=== PATIENT | female | born 1935 | race Caucasian/White ===

== ENCOUNTER 2019-07-03 16:48 | Outpatient (CLI) | payer MEDICARE, MEDICAID, SELFPAY ==
--- NOTE | 2019-07-03 | MRR_ITS ---
PROCEDURE INFORMATION: Exam: MR Head Without Contrast Exam date and time: 07/03/2019 5:14 PM Age: 83 years old Clinical indication: Other: Hearing loss; Additional info: Mixed hearing loss TECHNIQUE: Imaging protocol: MR of the head without contrast. COMPARISON: MRI IAC'S w/wo* [id number] 02/15/2015 1:12 PM FINDINGS: Brain: Moderate cerebral atrophy and ischemic leukoencephalopathy. Ventricles: Normal. No ventriculomegaly. Bones/joints: Unremarkable. Soft tissues: Unremarkable. Sinuses: Normal as visualized. No acute sinusitis. Mastoid air cells: Continued opacities in the left middle ear and left mastoid most consistent with stable chronic otitis media and mastoiditis. Orbits: Unremarkable. Vertebral arteries: Dominant right vertebral artery with patent left vertebral artery. MR/MR head wo con* [id number] IMPRESSION: 1. Moderate cerebral atrophy and ischemic leukoencephalopathy. 2. Continued opacities in the left middle ear and left mastoid most consistent with stable chronic otitis media and mastoiditis. 3. No acute intracranial findings.
== END 2019-07-03 16:49 | disposition home or self-care (01) ==
LOC: RADSHAW 16:48
PROVIDERS: Family Provider Family Medicine; PCP Family Medicine; Visit Provider Otolaryngology Otology & Neurotology
DX: H90.6 Mixed conductive and sensorineural hearing loss, bilateral (principal); G31.9 Degenerative disease of nervous system, unspecified
CPT/HCPCS: 70551

== ENCOUNTER → 2019-09-29 12:25 | Outpatient (BNVA) | payer MEDICARE, MEDICAID, SELFPAY | PROVIDERS: Family Provider Family Medicine; PCP Family Medicine; Visit Provider Urology | DX: N39.0 Urinary tract infection, site not specified (principal); R33.9 Retention of urine, unspecified; B37.3 Candidiasis of vulva and vagina | CPT/HCPCS: 80053; 81001 ==

== ENCOUNTER 2020-01-26 13:21 | Outpatient (CLI) | payer MEDICARE, MEDICAID, SELFPAY ==
--- NOTE | 2020-01-26 13:28 | CT_ITS ---
WS: [id number] CT CERVICAL SPINE TECHNIQUE: Noncontrast CT of the cervical spine with coronal and sagittal reformatted images. CLINICAL INFORMATION: CERVICAL RADICULOPATHY COMPARISON: None. DLP: 1861.[address] scans at [facility] use at least one of these dose optimization techniques: automat ed exposure control; mA and/or kV adjustment per patient size (includes targeted exams where dose is matched to clinical indication); or iterative reconstruction. FINDINGS: Straightening of the normal cervical lordosis. Mild cervical curve convex left. Mild spondylitic patrick ges. Normal C1-2 articulation. Slight anterolisthesis C3 on C4 and C4 on C5. Disc osteophyte complexe s worse at C5-C6 and C6-C7. C2-C3: Normal. C3-C4: Disc osteophyte ridging. Mild bilateral foraminal narrowing. Moderate right facet arthropathy. Mild central canal stenosis. C4-C5: Mild disc osteophyte complex with a tiny central protrusion. Mild to moderate facet arthropath y. Mild bilateral foraminal narrowing. C5-C6: Disc osteophytic complex with mild central canal stenosis and slight contact of the left ventr al cervical cord. Moderate to severe left foraminal narrowing. Mild right bony foraminal narrowing. M ild facet arthropathy. C6-C7: Disc osteophyte complex with endplate ridging. Severe left and no significant right foraminal narrowing. Mild central canal stenosis. Mild facet arthropathy. C7-T1: Tiny shallow central protrusion. Spinal canal and foramen are patent. Visualized posterior nasopharynx: Normal. Prevertebral soft tissues: Normal. Carotid bulb calcification. Chronic appearing opacification left mastoid air cells. CT/CT cervical spin wo con* [id number] IMPRESSION: 1. Mild spondylitic changes with straightening of the normal cervical lordosis . Slight anterolisthesis C3 on C4 and C4 on C5. 2. Mild central canal stenosis C5-C6 and C6-C7. Left eccentric disc osteophyte complex C5-C6 with slight contact of the ventral cervical cord. 3. Moderate to severe left bony foraminal narrowing at left C5-C6 and left C6- C7. 4. Moderate facet arthropathy C3-C4. 5. Chronic appearing opacification left mastoid air cells.
== END 2020-01-26 13:22 | disposition home or self-care (01) ==
LOC: RADWPI 13:25
PROVIDERS: Family Provider Family Medicine; PCP Family Medicine; Visit Provider Family Medicine
DX: M54.12 Radiculopathy, cervical region (principal); M48.02 Spinal stenosis, cervical region; M47.812 Spondylosis without myelopathy or radiculopathy, cervical region
CPT/HCPCS: 72125

== ENCOUNTER 2020-03-04 10:14 | Outpatient (CLI) | payer MEDICARE, MEDICAID, SELFPAY ==
[2020-03-04 10:54] LABS: C Reactive Protein 6.4 mg/L (0.0-4.9); Troponin T (5th) Once 16 ng/L (0-10)
[2020-03-04 13:45] LABS: Basophils # 0.1 10^3/uL (0.0-0.1); Basophils % 0.7 %; Eosinophils # 0.4 10^3/uL (0.0-0.8); Eosinophils % 4.6 %; Hematocrit 42.6 % (37.0-47.0); Hemoglobin 13.4 g/dL (11.5-15.3); Lymphocytes # 2.3 10^3/uL (0.8-4.8); Mean Corpuscular HGB Conc 31.5 g/dL (30.0-36.0); Mean Corpuscular Hemoglobin 28.8 pg (28.0-34.0); Mean Corpuscular Volume 91.6 fL (81-99); Mean Platelet Volume 11.7 fL (7.4-10.4); Monocytes # 0.6 10^3/uL (0.2-0.9); Monocytes % 7.3 %; Neutrophils # 5.08 10^3/uL (1.8-7.7); Neutrophils % 60.2 %; Nucleated Red Blood Cells % 0 %; Platelet Count 243 10^3/cmm (130-400); Red Blood Count 4.65 10^6/uL (4.1-5.3); Red Cell Distribution Width 13.7 % (12.1-15.1); White Blood Count 8.5 10^3/uL (4.0-10.0)
[2020-03-04 13:52] LABS: Alanine Aminotransferase 21 U/L (0-33); Albumin Level 4.5 g/dL (3.5-5.2); Alkaline Phosphatase 74 IU/L (35-105); Aspartate Amino Transferase 28 U/L (0-32); Blood Urea Nitrogen 18 mg/dL (8-23); Calcium 10.1 mg/dL (8.5-10.5); Carbon Dioxide 26 mmol/L (22-29); Chloride 98 mmol/L (98-107); Globulin 3.2 g/dL (1.3-4.6); Glucose 217 mg/dL (65-115); Osmolality Calculated 294 mOsm/kg (285-295); Sodium 138 mmol/L (136-145); Total Bilirubin 0.4 mg/dL (0.15-1.2); Total Protein 7.7 g/dL (6.6-8.7)
== END 2020-03-04 10:15 | disposition home or self-care (01) ==
LOC: LAB 10:16
PROVIDERS: PCP Family Medicine; Visit Provider Family Medicine
DX: I10 Essential (primary) hypertension (principal); R10.31 Right lower quadrant pain
CPT/HCPCS: 80053; 84484; 85025; 86140

== ENCOUNTER 2020-03-04 10:28 | Emergency (ER) | payer MEDICARE, MEDICAID, SELFPAY ==
[2020-03-04 10:30] VITALS: BP 193/104; PULSE 70; RESP 18; TEMP 36.4; O2SAT 96; BMI 29.9
--- NOTE | 2020-03-04 10:41 | CT_ITS ---
WS: [id number] CT abdomen pelvis w con* [id number] REASON FOR EXAM: abdominal pain IV CONTRAST ADMINISTERED: 95 mL of Visipaque TOTAL EXAM DLP: 1063.[address] scans at [facility] use at least one of these dose optimization techniques: automat ed exposure control; mA and/or kV adjustment per patient size (includes targeted exams where dose is matched to clinical indication); or iterative reconstruction. FINDINGS: ABDOMEN: Infiltrative change in the anterior, lateral left lower lung. This appears to been present on a previ ous chest x-ray of 03/02/2019. The liver is relatively homogeneous. No focal lesions are identified. The gallbladder and pancreas are unremarkable. Adrenals and kidneys are within normal limits. No abdominal mass or adenopathy. No focal fluid collection or free fluid noted. Small periumbilical hernia containing fat. Normal appendix identified distended with air. Extensive calcified atheromatous change involving the abdominal aorta and its major branches. Definit e high-grade stenoses not identified. Moderate changes of degenerative spondylosis in the lumbar spine. PELVIS: Moderate distention of the urinary bladder with no intraluminal mass or wall thickening. No mass or adenopathy. Uterus present. No free fluid or focal fluid collection. Moderate degenerative arthropathy in both hip joints. Diffuse calcified atheromatous change of the iliac arteries. CT/CT abdomen pelvis w con* [id number] IMPRESSION: No acute abdominal abnormality is identified.
[2020-03-04 11:16] LABS: Basophils # 0.1 10^3/uL (0.0-0.1); Basophils % 0.6 %; Eosinophils # 0.3 10^3/uL (0.0-0.8); Eosinophils % 3.8 %; Hematocrit 41.7 % (37.0-47.0); Hemoglobin 13.2 g/dL (11.5-15.3); Lymphocytes # 2.1 10^3/uL (0.8-4.8); Lymphocytes % 24.4 %; Mean Corpuscular HGB Conc 31.7 g/dL (30.0-36.0); Mean Corpuscular Hemoglobin 29.3 pg (28.0-34.0); Mean Corpuscular Volume 92.5 fL (81-99); Mean Platelet Volume 11.4 fL (7.4-10.4); Monocytes # 0.7 10^3/uL (0.2-0.9); Monocytes % 7.7 %; Neutrophils % 63.2 %; Nucleated Red Blood Cells % 0 %; Platelet Count 246 10^3/cmm (130-400); Red Blood Count 4.51 10^6/uL (4.1-5.3); Red Cell Distribution Width 13.7 % (12.1-15.1); White Blood Count 8.7 10^3/uL (4.0-10.0)
[2020-03-04 11:33] LABS: Alanine Aminotransferase 20 U/L (0-33); Albumin Level 4.4 g/dL (3.5-5.2); Alkaline Phosphatase 72 IU/L (35-105); Aspartate Amino Transferase 25 U/L (0-32); Blood Urea Nitrogen 18 mg/dL (8-23); Calcium 10.2 mg/dL (8.5-10.5); Carbon Dioxide 27 mmol/L (22-29); Chloride 99 mmol/L (98-107); Globulin 3.3 g/dL (1.3-4.6); Glucose 201 mg/dL (65-115); Lipase 22 U/L (13-60); Osmolality Calculated 296 mOsm/kg (285-295); Sodium 139 mmol/L (136-145); Total Bilirubin 0.4 mg/dL (0.15-1.2); Total Protein 7.7 g/dL (6.6-8.7)
--- NOTE | 2020-03-04 11:42 | ECG_ITS ---
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: : 1935 Requested By: Joan Bond Order Number: [id number] Reading MD: SARWAT MONIQUE Measurements Intervals [place] Rate: 66 P: 33 MD: 189 QRS: -21 QRSD: 94 T: 57 QT: 407 QTc: 429 Interpretive Statements SINUS RHYTHM VOLTAGE CRITERIA FOR LVH [MEETS CRITERIA IN ONE OF: R(aVL), S(V1), R(V5), R(V5/V6)+S(V1)] INFERIOR MYOCARDIAL INFARCTION [40+ ms Q WAVE AND/OR ST/T ABNORMALITY IN II/aVF], OF INDETERMINATE AGE POSSIBLE ANTEROSEPTAL MYOCARDIAL INFARCTION [30 ms Q WAVE IN V1-V4], OF INDETERMINATE AGE Compared to ECG 12/25/2018 14:24:10 No significant changes Electronically Signed On 03-04-2020 19:28:38 FINANCIAL PROJECT MANAGER by SARWAT MONIQUE [id number]
[2020-03-04 11:49] LABS: Lactic Sepsis W/Reflex 1.8 mmol/L (0.5-2.2)
--- NOTE | 2020-03-04 11:49 | W.ED.CHESTPA ---
HPI - Chest Pain General: Chief Complaint: Abdominal Pain Stated Complaint: ABDOMINAL PAIN/ HYPERTENSIVE Time Seen by Provider: 03/04/20 10:34 History of Present Illness: HPI narrative: This patient is an 84-year-old female who was sent over from Dr. Mukherjee office. She saw him today for abdominal pain it has been going on for a few days. She feels it in the right lower quadrant. She said it is kind of a dull pain that comes and goes. Last night it was severe enough that she took something for it. She has never had any abdominal surgeries. She is a diabetic and is poorly controlled. She has some chronic nausea related to that. She is not been vomiting. She has been having normal bowel movements. She denies urinary symptoms. She is on antibiotics chronically to prevent infections she tells me. MD complaint: other Associated symptoms: Reports abdominal pain and nausea; Deny dyspnea, fever(s) or vomiting Review of Systems General: Reports: 10 or more systems reviewed and unremarkable except in HPI and below Const: Denies: fever(s), chills, fatigue or malaise Eyes: Denies: change in vision ENMT: Denies: odynophagia Card: Denies: chest pain or swelling of feet/ankles Resp: Denies: dyspnea, productive cough or non-productive cough GI: Reports: abdominal pain and nausea; Denies: vomiting : Denies: flank pain or difficulty voiding Musc: Denies: neck pain or back pain Skin/Breast: Denies: rash Neuro: Denies: headache(s), numbness in extremities or weakness in extremities Vitaly/Lymph: Denies: easy bruising or easy bleeding PFSH ED PFSH: Medical History Carotid stenosis Carotid stenosis, bilateral COPD (chronic obstructive pulmonary disease) GERD (gastroesophageal reflux disease) Hyperlipidemia Incomplete bladder emptying Neurogenic bladder PAD (peripheral artery disease) Recurrent UTI Type 2 diabetes mellitus with diabetic polyneuropathy Vertigo Yeast vaginitis Surgical History History of ear surgery Family History Family/Other Cancer Stroke Denies family history of Diabetes CAD (coronary artery disease) Clotting disorder Dementia Hyperlipidemia Psychiatric illness Chronic kidney disease (CKD) Suicide Anesthesia complication Bleeding disorder Family history of premature coronary artery disease Lung disease Hypertension Social History Smoking and tobacco status: never smoked Alcohol intake: never Adopted: No Caregiver/support person: No Lives independently: Yes Marital status: Current occupational status: retired History of recent travel: No Current gender identity: Female Physical Exam Const: COMMON NORMALS: no acute distress, patient oriented x3, no limitations and alert GENERAL APPEARANCE: cooperative and comfortable HENMT: HEAD & SCALP: normal to inspection FACE & SINUS: normal facial exam Eye: GENERAL EYE: appearance normal, both eyes and all related structures Neck/C-Spine: COMMON NORMALS: supple, no meningeal signs and no JVD Chest: COMMONS NORMALS: normal inspection of the chest Resp: COMMON NORMALS: normal respiratory effort, No use of accessory muscles and clear to auscultation bilaterally AUSCULTATION: clear to auscultation bilaterally Cardio: COMMON NORMALS: no JVD, regular rate, regular rhythm and No murmurs present (Cardio) RATE: regular rate RHYTHM: regular rhythm GI: COMMON NORMALS: Normal to inspection, nondistended, normoactive bowel sounds present, Soft to palpation and non-tender INSPECTION: Yes normal to inspection AUSCULTATION: Yes normoactive bowel sounds PALPATION: Yes Soft to palpation and Yes Tenderness to palpation present (GI) Details: RLQ and RUQ Back/Pelvis: COMMON NORMALS: thoracic and lumbar spine normal to inspection Extremity: COMMON NORMALS: normal to inspection Neuro: COMMON NORMALS: patient oriented x3, moves all extremities, no focal motor deficits and no sensory deficits noted SENSORIUM/ORIENTATION: Yes alert MENINGEAL SIGNS: Yes no meningeal signs Psych: COMMON NORMALS: mental status grossly normal, cooperative and normal affect Skin: COMMON NORMALS: no rashes or lesions noted and turgor normal GENERAL SKIN EXAM: no rashes or lesions noted and turgor normal Course ED course: Patient with some right-sided abdominal pain. I cannot find a cause for this as her work-up and CT are negative. We discussed return precautions and she understands that even though things negative today she should return if worsening or not improving and definitely should follow-up with her doctor as well. Vital Signs: Vital signs: Vital Signs Temperature 97.6 F 03/04/20 10:30 Pulse Rate 62 03/04/20 12:22 Respiratory Rate 17 03/04/20 12:22 Blood Pressure 135/68 03/04/20 12:22 Pulse Oximetry 96 03/04/20 12:22 MDM - Chest Pain Lab Data: Labs: Lab Results 03/04/20 03/04/20 03/04/20 Range/Units 10:14 10:14 11:15 WBC 8.7 (4.0-10.0) 10^3/ uL RBC 4.51 (4.1-5.3) 10^6/u L Hgb 13.2 (11.5-15.3) g/dL Hct 41.7 (37.0-47.0) % MCV 92.5 (81-99) fL MCH 29.3 (28.0-34.0) pg MCHC 31.7 (30.0-36.0) g/dL RDW 13.7 (12.1-15.1) % Plt Count 246 (130-400) 10^3/c mm MPV 11.4 H (7.4-10.4) fL Neut % (Auto) 63.2 % Lymph % (Auto) 24.4 % [place] % (Auto) 7.7 % Eos % (Auto) 3.8 % Baso % (Auto) 0.6 % Neut # (Auto) 5.50 (1.8-7.7) 10^3/u L Lymph # (Auto) 2.1 (0.8-4.8) 10^3/u L [place] # (Auto) 0.7 (0.2-0.9) 10^3/u L Eos # (Auto) 0.3 (0.0-0.8) 10^3/u L Baso # (Auto) 0.1 (0.0-0.1) 10^3/u L Nucleated RBC % (a uto) 0 % Nucleated RBCs # 0.0 /100WBC Sodium 139 (136-145) mmol/L Potassium 4.0 (3.5-5.1) mmol/L Chloride 99 (98-107) mmol/L Carbon Dioxide 27 (22-29) mmol/L Anion Gap 17.0 (5-19) BUN 18 (8-23) mg/dL Creatinine 1.0 H (0.5-0.9) mg/dL GFR Calculation Not Reportable Glucose 201 H (65-115) mg/dL Calculated Osmolal ity 296 H (285-295) mOsm/k g Lactic Acid 1.8 (0.5-2.2) mmol/L Calcium 10.2 (8.5-10.5) mg/dL Total Bilirubin 0.4 (0.15-1.2) mg/dL AST 25 (0-32) U/L ALT 20 (0-33) U/L Alkaline Phosphata se 72 (35-105) IU/L Total Protein 7.7 (6.6-8.7) g/dL Albumin 4.4 (3.5-5.2) g/dL Globulin 3.3 (1.3-4.6) g/dL Lipase 22 (13-60) U/L Urine Color (Yellow) Urine Appearance (CLEAR) Urine pH (5-7) Ur Specific Gravit y (1.005-1.030) Urine Protein (Negative) Urine Glucose (UA) (Normal) Urine Ketones (Negative) Urine Blood (Negative) Urine Nitrate (Negative) Urine Bilirubin (Negative) Urine Urobilinogen (Negative) mg/dL Ur Leukocyte Ese ase (Negative) Urine RBC (0-2) /hpf Urine WBC (0-5) /hpf Ur Squamous Epith Cells (0-5) /hpf Amorphous Sediment Urine Bacteria (NONE) /hpf Urine Yeast /hpf 03/04/20 Range/Units 12:00 WBC (4.0-10.0) 10^3/ uL RBC (4.1-5.3) 10^6/u L Hgb (11.5-15.3) g/dL Hct (37.0-47.0) % MCV (81-99) fL MCH (28.0-34.0) pg MCHC (30.0-36.0) g/dL RDW (12.1-15.1) % Plt Count (130-400) 10^3/c mm MPV (7.4-10.4) fL Neut % (Auto) % Lymph % (Auto) % [place] % (Auto) % Eos % (Auto) % Baso % (Auto) % Neut # (Auto) (1.8-7.7) 10^3/u L Lymph # (Auto) (0.8-4.8) 10^3/u L [place] # (Auto) (0.2-0.9) 10^3/u L Eos # (Auto) (0.0-0.8) 10^3/u L Baso # (Auto) (0.0-0.1) 10^3/u L Nucleated RBC % (a uto) % Nucleated RBCs # /100WBC Sodium (136-145) mmol/L Potassium (3.5-5.1) mmol/L Chloride (98-107) mmol/L Carbon Dioxide (22-29) mmol/L Anion Gap (5-19) BUN (8-23) mg/dL Creatinine (0.5-0.9) mg/dL GFR Calculation Glucose (65-115) mg/dL Calculated Osmolal ity (285-295) mOsm/k g Lactic Acid (0.5-2.2) mmol/L Calcium (8.5-10.5) mg/dL Total Bilirubin (0.15-1.2) mg/dL AST (0-32) U/L ALT (0-33) U/L Alkaline Phosphata se (35-105) IU/L Total Protein (6.6-8.7) g/dL Albumin (3.5-5.2) g/dL Globulin (1.3-4.6) g/dL Lipase (13-60) U/L Urine Color Yellow (Yellow) Urine Appearance Hazy A (CLEAR) Urine pH 5 (5-7) Ur Specific Gravit y 1.005 (1.005-1.030) Urine Protein Neg (Negative) Urine Glucose (UA) 2+ (Normal) Urine Ketones Negative (Negative) Urine Blood Neg (Negative) Urine Nitrate Negative (Negative) Urine Bilirubin Neg (Negative) Urine Urobilinogen Norm (Negative) mg/dL Ur Leukocyte Ese ase 1+ H (Negative) Urine RBC 0-4 H (0-2) /hpf Urine WBC 40-55 H (0-5) /hpf Ur Squamous Epith Cells 0-4 H (0-5) /hpf Amorphous Sediment Not Reportable Urine Bacteria 1+ H (NONE) /hpf Urine Yeast Trace /hpf Discharge Plan Discharge Patient Disposition: Home Clinical Impression: Abdominal pain Type 2 diabetes mellitus with diabetic polyneuropathy Qualifiers: 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 insulin use: unspecified skilled nursing insulin use status Qualified Code(s): E11.42 - Type 2 diabetes mellitus with diabetic polyneuropathy Condition: Stable Prescriptions: No Action metformin 500 mg tablet 500 mg PO DAILY RF: 0 rosuvastatin 10 mg tablet 10 mg PO DAILY RF: 0 melatonin 5 mg capsule PO RF: 0 doxycycline hyclate 100 mg tablet 100 mg PO DAILY RF: 0 lisinopril 5 mg tablet 5 mg PO DAILY RF: 0 calcium polycarbophil [Fiber (calcium polycarbophil)] 625 mg tablet 1,250 mg PO DAILY RF: 0 Lactobacillus acidophilus PO RF: 0 wk-axs-fudvh acid-lutein PO RF: 0 cetirizine [24Hour Allergy] 10 mg tablet 5 mg PO DAILY PRNRF: 0 insulin aspart U-100 SUBCUT RF: 0 acetaminophen 500 mg capsule 500 mg PO Q6H PRNRF: 0 docusate sodium PO RF: 0 pantoprazole 20 mg tablet,delayed release (DR/EC) 40 mg PO DAILY RF: 0 Tresiba FlexTouch U-100 100 unit/mL (3 mL) insulin pen 52 unit SUBCUT DAILY RF: 0 metoprolol tartrate 25 mg tablet 25 mg PO BID RF: 0 fluconazole 150 mg tablet 150 mg PO Q3D Qty: 2 RF: 0 Discharge Orders: Discharge Order (Routine); Ordered 03/04/20 Ordered By: Joan Baires Referrals: Blaine Mukherjee MD [Primary Care Provider] - Discharge Diet: Usual diet Discharge Activity: Resume usual activity Patient Instructions: Abdominal Pain (ED) Activity Restrictions/Additional Instructions: Follow-up with Dr. Mukherjee if you are still having pain on Saturday. If your pain is worsening, you develop fever, vomiting or any other new concerns before then please return to the ER. Coding Level of Care Code ED Form Setter/Driver for Kait Ceballos
[2020-03-04 12:22] VITALS: BP 135/68; PULSE 62; RESP 17; O2SAT 96
[2020-03-04 13:27] LABS: Protein Urine Neg (Negative); Specific Gravity, Urine 1.005 (1.005-1.030); Urine Appearance Hazy (CLEAR); Urine Color Yellow (Yellow); pH Urine 5 (5-7)
[2020-03-04 13:28] LABS: Add Urine Microscopic? YES; Bilirubin Urine Neg (Negative); Blood Urine Neg (Negative); Glucose Urine UA 2+ (Normal); Ketones Urine Negative (Negative); Leukocyte Esterase Urine 1+ (Negative); Nitrate Urine Negative (Negative); Urobilinogen Urine Norm (Negative)
[2020-03-04 13:30] LABS: Add Urine Culture? Yes; Bacteria Urine 1+ /hpf; RBC Urine 0-4 /hpf (0-2); Squamous Epithelial Cell Urine 0-4 /hpf (0-5); WBC Urine 40-55 /hpf (0-5)
[2020-03-04] MEDS: iodixanol 320 mg/mL 100mL Btl IV (14:09)
== END 2020-03-04 16:24 | disposition home or self-care (01) ==
PROVIDERS: Emergency Provider Emergency Medicine; PCP Family Medicine
DX: R10.31 Right lower quadrant pain (principal); E11.42 Type 2 diabetes mellitus with diabetic polyneuropathy; Z79.899 Other long term (current) drug therapy; E78.5 Hyperlipidemia, unspecified; I65.23 Occlusion and stenosis of bilateral carotid arteries; Z79.4 Long term (current) use of insulin; E11.65 Type 2 diabetes mellitus with hyperglycemia; I10 Essential (primary) hypertension
CPT/HCPCS: 12345; 74177; 80053; 81001; 83605; 83690; 84484; 85025; 86140; 87077; 87086; 87186; 93005; 99283; Q9967

== ENCOUNTER 2020-05-11 09:12 | Outpatient (CLI) | payer MEDICARE, MEDICAID, SELFPAY ==
--- NOTE | 2020-05-11 09:30 | USCV_ITS ---
Norma Porter Age: 84 Gender: F : 1935 Exam Date: 05/11/2020 09:12 Ordering Phys: Marla Wen MD ([email or web address]) Technologist: Irena Gregory Exam Location: [facility] [place] Indication: RECHECK OF CCA STENOSIS Risk Factors: Unknown Previous Vascular Surgery: None Right Brachial BP: / Left Brachial BP: / Right Left Velocity (cm/s) Spectral Plaque Velocity (cm/s) Spectral Plaque Syst/Diast Broadening Syst/Diast Broadening 66.00/ 15.60 Hetro Prox CCA 80.70 / 15.80 Hetro 55.50/ 12.90 Hetro Mid CCA 74.70 / 12.80 Hetro 71.00/ 16.10 Hetro Distal CCA 70.90 / 12.80 Hetro 77.70/ 15.10 Hetro Prox ICA 116.10/ 31.70 Hetro 83.70/ 21.90 Mid ICA 87.50 / 19.60 95.80/ 22.60 Distal ICA 91.30 / 18.10 55.50 Hetro ECA 106.30 Hetro 1.73 ICA/CCA 1.56 Antegrade Vertebral Retrograde 45.20/ 12.10 cm/s / cm/s Bi Subclavian [place] 86.00 65.80 CONCLUSIONS Right ICA stenosis <50%. Moderate calcified atheromatous plaque right carotid bulb/ICA. Left ICA stenosis <50%. Moderate calcified atheromatous plaque left carotid bulb/ICA. Normal antegrade Doppler flow noted in the right vertebral artery. Retrograde Doppler flow noted in the left vertebral artery suspicious for subclavian steal. Augustine Sood MD (Electronically Signed) Final Date: 11 May 2020 13:03 S
== END 2020-05-11 09:13 | disposition home or self-care (01) ==
LOC: US 09:15
PROVIDERS: PCP Family Medicine; Visit Provider Internal Medicine Cardiovascular Disease
DX: I65.23 Occlusion and stenosis of bilateral carotid arteries (principal)
CPT/HCPCS: 93880

== ENCOUNTER → 2020-08-09 16:00 | Outpatient (BNVA) | payer MEDICARE, MEDICAID, SELFPAY | PROVIDERS: PCP Family Medicine; Visit Provider Urology | DX: N39.0 Urinary tract infection, site not specified (principal); R33.9 Retention of urine, unspecified | CPT/HCPCS: 81003; 87086 ==

== ENCOUNTER 2020-08-15 07:52 | Outpatient (CLI) | payer MEDICARE, MEDICAID, SELFPAY ==
--- NOTE | 2020-08-15 08:05 | CT_ITS ---
WS: [id number] CTA THORACIC TECHNIQUE: Contrast enhanced CTA of the thoracic aorta with coronal and sagittal reformatted images a nd maximum intensity projection (MIP) images. CLINICAL INFORMATION: SUBCLAVIAN STEAL SYNDROME L SUBCLAVION ARTERY COMPARISON: Ultrasound May 11, 2020 DLP: 1136.[address] scans at [facility] use at least one of these dose optimization techniques: automat ed exposure control; mA and/or kV adjustment per patient size (includes targeted exams where dose is matched to clinical indication); or iterative reconstruction. FINDINGS: Proximal main pulmonary arteries are normal. Calcified aortic atheromatous disease. Normal caliber th oracic aorta. Normal caliber upper abdominal aorta. No mediastinal or hilar lymphadenopathy. Calcifie d anterior mediastinal and right hilar lymph nodes. Moderate esophageal hiatal hernia. 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 Left lucretia tebral artery is patent with retrograde filling as seen prior ultrasound consistent with subclavian s teal. Distal subclavian artery is patent.Moderate chronic emphysematous changes. No acute pulmonary i nfiltrates. Scattered fibrosis in both lungs. Calcified granulomas. Adrenal glands are normal. CT/CT angio chest [id number] IMPRESSION: 1. High-grade stenosis with dense calcification and occlusion/near occlusion o f the proximal subclavian artery. Both vertebral arteries patent with left subc lavian steal seen on the recent ultrasound. Normal filling of the mid and dista l subclavian artery. 2. Moderate chronic emphysematous changes. No acute pulmonary infiltrates. 3. Moderate aortic atheromatous disease. Normal caliber thoracic aorta. 4. Moderate esophageal hiatal hernia.
[2020-08-15] MEDS: iodixanol 320 mg/mL 100mL Btl IV (08:46)
== END 2020-08-15 07:53 | disposition home or self-care (01) ==
LOC: RAD 07:55
PROVIDERS: PCP Family Medicine; Visit Provider Family Medicine
DX: I73.9 Peripheral vascular disease, unspecified (principal); G45.1 Carotid artery syndrome (hemispheric); K44.9 Diaphragmatic hernia without obstruction or gangrene; I70.0 Atherosclerosis of aorta
CPT/HCPCS: 71275

== ENCOUNTER → 2020-08-31 14:49 | Outpatient (BNVA) | payer MEDICARE, MEDICAID, SELFPAY | PROVIDERS: PCP Family Medicine; Visit Provider Urology | DX: N39.0 Urinary tract infection, site not specified (principal); R33.9 Retention of urine, unspecified; R10.9 Unspecified abdominal pain | CPT/HCPCS: 81003 ==

== ENCOUNTER → 2020-11-02 16:03 | Outpatient (BNVA) | payer MEDICARE, MEDICAID, SELFPAY | PROVIDERS: PCP Family Medicine; Visit Provider Urology | DX: N39.0 Urinary tract infection, site not specified (principal); B37.3 Candidiasis of vulva and vagina | CPT/HCPCS: 81003 ==

== ENCOUNTER → 2021-02-28 15:54 | Outpatient (BNVA) | payer MEDICARE, MEDICAID, SELFPAY | PROVIDERS: PCP Family Medicine; Visit Provider Nurse Practitioner Family | DX: N39.0 Urinary tract infection, site not specified (principal) | CPT/HCPCS: 81003; 87086 ==

== ENCOUNTER 2021-06-16 12:01 | Outpatient (CLI) | payer MEDICARE, MEDICAID, SELFPAY ==
--- NOTE | 2021-06-16 12:16 | CT_ITS ---
WS: [id number] CT HEAD WITH AND WITHOUT CONTRAST HISTORY: CONSTANT Exophthalmos, left EYE TECHNIQUE: Noncontrast 2.5 mm axial images obtained from the vertex to the skull base. Additional frank ging performed at 2.5 mm axial images status post IV contrast. Bone and soft tissue windows are revie wed. All CT scans at [facility] use at least one of these dose optimization techniques: autom ated exposure control; mA and/or kV adjustment per patient size (includes targeted exams where dose i s matched to clinical indication); or iterative reconstruction. CONTRAST: Omnipaque 300; 95 mL IV. DLP: 2752.06 mGy.cm COMPARISON: Temporal bone CT 07/15/2007 and prior MRI 02/15/2015 No acute intracranial hemorrhage, edema or midline shift. Focal calcification has been present for mu ltiple prior years along the RIGHT tentorium. May be dystrophic calcification. Mild atrophy and chron ic ischemic disease throughout the brain. No extra-axial blood or fluid collections. Small lacunar in farct in the LEFT lentiform nucleus. Mild cerebellar atrophy. No enhancing mass or vascular malformations identified. No mass or abnormal enhancement of the optic chiasm. Dural venous sinuses are normally enhancing. Arachnoid granulation in the LEFT transverse sinus. Distal vertebral arteries and basilar artery are intact. Mild atherosclerotic plaque throughout the m iddle cerebral arteries. No occlusions or aneurysms. Anterior cerebral arteries are normal. Paranasal sinuses as visualized: Clear. Mastoid air cells: Mild coalescence of mastoid air cells. Postsurgical changes are noted within the L EFT mastoid from prior mastoidectomy. Calvarium and scalp: Intact. Visualized orbits and globes are normal. As seen on a prior study from 2007 there is a similar appear ance to the optic nerves. CT/CT head wo/w con [id number] IMPRESSION: 1. No enhancing masses. 2. No mass at the region of the sella turcica or optic chiasm. 3. Stable cluster of calcifications along the RIGHT tentorium. 4. Mild atrophy and chronic ischemic disease. Remote lacunar infarct LEFT lent iform nucleus.
--- NOTE | 2021-06-16 12:29 | CT_ITS ---
WS: [id number] CT ORBITS, WITH AND WITHOUT CONTRAST. HISTORY: CONSTANT EXOPHTHALMOS LEFT EYE Technique: All CT scans at [facility] use at least one of these dose optimization techniques: automated exposure control; mA and/or kV adjustment per patient size (includes targeted exams where dose is matched to clinical indication); or iterative reconstruction. DLP: 2752.06 mGy-cm. COMPARISON: None available. Contrast: Visipaque 95 mL IV. Normal appearance of the orbits and globes and the retrobulbar fat. Bilateral cataract surgery is vijay dent. The extraocular muscles are symmetric bilaterally. No enlargement. Optic nerves are symmetric b ilaterally. No flattening of the optic disc. No enhancing masses are identified. The distance from the anterior margin of the globe to the interzygomatic line is 16 mm on the RIGHT a nd 17 mm on the LEFT which is normal. Abnormal distance is greater than 21 mm. During this examinatio n there is no evidence for proptosis. There is no mass. Moderate calcification in the intracranial ca rotid arteries to the cavernous sinuses and supraclinoid carotids. No aneurysm. The optic chiasm is m idline. No pituitary abnormality. There is no osseous destruction. Visualized sinuses are normal. Negative. CT/CT orbit BI wo/w con [id number] IMPRESSION: 1. No CT evidence for ocular proptosis. 2. No orbital mass or exophthalmos.
[2021-06-16 12:55] LABS: Blood Urea Nitrogen 23 mg/dL (8-23)
[2021-06-16] MEDS: iodixanol 320 mg/mL 100mL Btl IV (13:26)
== END 2021-06-16 12:02 | disposition home or self-care (01) ==
LOC: RAD 12:01
PROVIDERS: PCP Family Medicine; Visit Provider Ophthalmology
DX: H05.242 Constant exophthalmos, left eye (principal); I67.82 Cerebral ischemia; G31.9 Degenerative disease of nervous system, unspecified
CPT/HCPCS: 70470; 70481; 70482; 82565; 84520

== ENCOUNTER → 2021-07-06 11:25 | Outpatient (BNVA) | payer MEDICARE, MEDICAID, SELFPAY | PROVIDERS: PCP Family Medicine; Referring Provider Family Medicine; Visit Provider Specialist | DX: R20.0 Anesthesia of skin (principal); R20.2 Paresthesia of skin; Z87.891 Personal history of nicotine dependence | CPT/HCPCS: 95907 ==

== ENCOUNTER → 2021-07-11 13:44 | Outpatient (BNVA) | payer MEDICARE, MEDICAID, SELFPAY | PROVIDERS: PCP Family Medicine; Visit Provider Nurse Practitioner Family | DX: N39.0 Urinary tract infection, site not specified (principal) | CPT/HCPCS: 81003; 87086 ==

== ENCOUNTER → 2021-08-09 10:42 | Outpatient (BNVA) | payer MEDICARE, MEDICAID, SELFPAY | PROVIDERS: PCP Family Medicine; Visit Provider Nurse Practitioner Family | DX: N39.0 Urinary tract infection, site not specified (principal) | CPT/HCPCS: 81003; 87086 ==

== ENCOUNTER → 2021-09-18 10:51 | Outpatient (BNVA) | payer MEDICARE, MEDICAID, SELFPAY | PROVIDERS: PCP Family Medicine; Visit Provider Internal Medicine Cardiovascular Disease | DX: I65.23 Occlusion and stenosis of bilateral carotid arteries (principal); I77.1 Stricture of artery; I10 Essential (primary) hypertension; I73.9 Peripheral vascular disease, unspecified; Z87.891 Personal history of nicotine dependence; R42 Dizziness and giddiness; M79.89 Other specified soft tissue disorders | CPT/HCPCS: 99214 ==

== ENCOUNTER → 2021-09-28 09:12 | Outpatient (BNVA) | payer MEDICARE, MEDICAID, SELFPAY | PROVIDERS: PCP Family Medicine; Visit Provider Urology | DX: N39.0 Urinary tract infection, site not specified (principal); R33.9 Retention of urine, unspecified | CPT/HCPCS: 51798; 81003; 99213 ==

== ENCOUNTER → 2021-11-30 14:40 | Outpatient (BNVA) | payer MEDICARE, MEDICAID, SELFPAY | PROVIDERS: PCP Family Medicine; Visit Provider Urology | DX: R33.9 Retention of urine, unspecified (principal); N39.0 Urinary tract infection, site not specified | CPT/HCPCS: 51798; 99213 ==

== ENCOUNTER → 2022-02-02 09:59 | Outpatient (BNVA) | payer MEDICARE, MEDICAID, SELFPAY | PROVIDERS: PCP Family Medicine; Visit Provider Urology | DX: N39.46 Mixed incontinence (principal) | CPT/HCPCS: 51798; 99213 ==

== ENCOUNTER 2022-02-27 20:35 | Emergency (ER) | payer MEDICARE, MEDICAID, SELFPAY ==
[2022-02-27] VITALS (8 sets, daily range): BP systolic 115–188; BP diastolic 64–98; PULSE 74–89; RESP 19–30; TEMP 36.8; O2SAT 95–97; BMI 32.4
--- NOTE | 2022-02-27 20:38 | XRR_ITS ---
PROCEDURE INFORMATION: Exam: XR Chest Exam date and time: 02/27/2022 8:51 PM Age: 86 years old Clinical indication: Shortness of breath; Patient HX: C/O SOB TECHNIQUE: Imaging protocol: Radiologic exam of the chest. Views: 1 view. COMPARISON: CT angio chest [id number] 08/15/2020 8:51 AM FINDINGS: Lungs: Lungs are clear bilaterally. Pleural spaces: No pleural effusion. No pneumothorax. Heart/Mediastinum: Stable moderate enlargement of the cardiac silhouette. Mediastinal contours are unremarkable. Vasculature: Stable vascular calcifications in the aorta. Bones/joints: Unremarkable for age. XR/XR chest 1V portable [id number] IMPRESSION: 1. No acute cardiopulmonary process. 2. Incidental/nonacute findings are listed in the report.
--- NOTE | 2022-02-27 20:38 | ECG_ITS ---
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 Measurements Intervals [place] Rate: 90 P: 33 VT: 188 QRS: -20 QRSD: 91 T: 57 QT: 355 QTc: 436 Interpretive Statements SINUS RHYTHM WITH OCCASIONAL SUPRAVENTRICULAR PREMATURE COMPLEXES LEFT VENTRICULAR HYPERTROPHY AND ST-T CHANGE [VOLTAGE CRITERIA PLUS ST/T ABNORMALITY] ANTERIOR MYOCARDIAL INFARCTION , OF INDETERMINATE AGE [40+ ms Q WAVE AND/OR ST/T ABNORMALITY IN V3/V4] INFERIOR MYOCARDIAL INFARCTION , OF INDETERMINATE AGE [40+ ms Q WAVE AND/OR ST/T ABNORMALITY IN II/aVF] Compared to ECG 03/04/2020 10:44:03 ST (T wave) deviation now present Myocardial infarct finding still present Electronically Signed On 02-27-2022 21:48:34 CDT by Gale Brambila M.D. [id number]
[2022-02-27 20:51] LABS: Basophils # 0.1 10^3/uL (0.0-0.1); Basophils % 0.7 %; Eosinophils # 0.4 10^3/uL (0.0-0.8); Eosinophils % 4.1 %; Hematocrit 38.9 % (37.0-47.0); Hemoglobin 12.6 g/dL (11.5-15.3); Lymphocytes # 2.3 10^3/uL (0.8-4.8); Lymphocytes % 22.8 %; Mean Corpuscular HGB Conc 32.4 g/dL (30.0-36.0); Mean Corpuscular Hemoglobin 29.6 pg (28.0-34.0); Mean Corpuscular Volume 91.5 fl (81-99); Monocytes # 0.9 10^3/uL (0.2-0.9); Monocytes % 8.7 %; Neutrophils # 6.21 10^3/uL (1.8-7.7); Nucleated Red Blood Cells % 0 %; Platelet Count 231 10^3/cmm (130-400); Red Blood Count 4.25 10^6/uL (4.1-5.3); Red Cell Distribution Width 14.1 % (12.1-15.1); White Blood Count 9.9 10^3/uL (4.0-10.0)
[2022-02-27] MEDS: sodium chloride 0.9% 1,000 ML 999 ML IV (20:51)
[2022-02-27 21:05] LABS: INR 1.06 (0.8-1.2)
[2022-02-27] MEDS: ALPRAZolam 0.5 mg Tablet 1 MG PO (21:12)
--- NOTE | 2022-02-27 21:13 | ED_ITS ---
HPI - Arrhythmia/Palpitations General: Chief Complaint: Arrhythmia/Palpitations Stated Complaint: weakness, sob Time Seen by Provider: 02/27/22 20:38 Source: patient and EMS Mode of arrival: EMS Limitations: no limitations History of Present Illness: 87-year-old female who states that she suddenly roughly an hour ago started feeling extremely short of breath states that she felt like she cannot get a breath in she felt like her heart was racing she denies any pain or fever or cough. She does have a history anxiety she is very anxious here. She has had no vomiting no diarrhea no headaches. Associated symptoms: Reports anxiety; Deny nausea or vomiting Review of Systems Const: Denies: fever(s), chills, body aches or change in appetite Eyes: Denies: blurry vision or eye discomfort ENMT: Denies: throat pain or dental pain Card: Reports: palpitations; Denies: chest pain Resp: Denies: dyspnea GI: Denies: abdominal pain, nausea, vomiting or diarrhea : Denies: dysuria Musc: Denies: neck pain or back pain Skin/Breast: Denies: rash Neuro: Denies: headache(s) Psych: Reports: anxiety; Denies: depression Vitaly/Lymph: Denies: easy bruising All/Imm: Denies: urticaria PFSH ED PFSH: Medical History Carotid stenosis Carotid stenosis, bilateral COPD (chronic obstructive pulmonary disease) GERD (gastroesophageal reflux disease) Hyperlipidemia Incomplete bladder emptying Neurogenic bladder PAD (peripheral artery disease) Recurrent UTI Clinically consistent with chronic cystitis. Type 2 diabetes mellitus with diabetic polyneuropathy Vertigo Yeast vaginitis Surgical History History of ear surgery Family History Family/Other Cancer Stroke Denies family history of Diabetes CAD (coronary artery disease) Clotting disorder Dementia Hyperlipidemia Psychiatric illness Chronic kidney disease (CKD) Suicide Anesthesia complication Bleeding disorder Family history of premature coronary artery disease Lung disease Hypertension Social History Smoking and tobacco status: former smoker Alcohol intake: never Marital status: Current occupational status: retired History of recent travel: No Physical Exam Const: COMMON NORMALS: patient oriented x3 GENERAL APPEARANCE: anxious HENMT: COMMON NORMALS: normocephalic and atraumatic HEAD & SCALP: normocep halic and atraumatic Eye: COMMON NORMALS: Equal, round and reactive pupils present and EOMs intact bilaterally PUPIL: Yes Equal, round and reactive pupils present Neck/C-Spine: COMMON NORMALS: full ROM and supple Chest: COMMONS NORMALS: normal inspection of the chest and normal palpation of entire chest wall Resp: COMMON NORMALS: normal respiratory effort, No retractions, No use of accessory muscles and clear to auscultation bilaterally AUSCULTATION: clear to auscultation bilaterally Cardio: COMMON NORMALS: regular rate, regular rhythm and No murmurs present (Cardio) RATE: regular rate RHYTHM: regular rhythm GI: COMMON NORMALS: Normal to inspection, nondistended, normoactive bowel sounds present, Soft to palpation, non-tender and no masses PALPATION: Yes Soft to palpation Extremity: COMMON NORMALS: normal to inspection and full ROM Neuro: COMMON NORMALS: patient oriented x3, moves all extremities and no focal motor deficits Psych: COMMON NORMALS: mental status grossly normal, Normal thought process present and cooperative MOOD & AFFECT: Yes anxious THOUGHT PROCESS: Normal thought process present Skin: COMMON NORMALS: no rashes or lesions noted and no wounds GENERAL SKIN EXAM: no rashes or lesions noted Course Vital Signs: Vital signs: Vital Signs Temperature 98.3 F 02/27/22 20:41 Pulse Rate 78 02/27/22 23:36 Respiratory Rate 22 H 02/27/22 23:36 Blood Pressure 125/71 02/27/22 23:36 Pulse Oximetry 95 02/27/22 23:36 Oxygen Delivery Me thod 02/27/22 23:36 MDM - Arrhythmia/Palpitations Medical Decision Making Patient presents here with dyspnea with palpitations likely with anxiety she is much improved. Does have a slight UTI will start Keflex blood work is otherwise normal she is stable for discharge she is to follow-up with PCP and return if worsening. Lab Data : 02/27/22 20:23 02/27/22 20:23 Radiology Impressions Chest X-Ray 02/27/22 20:38 IMPRESSION: 1. No acute cardiopulmonary process. 2. Incidental/nonacute findings are listed in the report. Abdomen/Pelvis CT 02/27/22 22:43 IMPRESSION: 1. Diffuse, mild wall thickening of the bladder. In the correct clinical setting, this may suggest cystitis. Recommend correlation with laboratory findings. Alternatively, this may be secondary to chronic outlet obstruction. 2. Scattered diverticula in the colon. No evidence for diverticulitis. 3. Incidental/nonacute findings are listed in the report. Laboratory Results WBC 9.9 10^3/uL (4.0-10.0) 02/27/22 20: RBC 4.25 10^6/uL (4.1-5.3) 02/27/22 20: Hgb 12.6 g/dL (11.5-15.3) 02/27/22: Hct 38.9 % (37.0-47.0) 02/27/22: MCV 91.5 fl (81-99) 02/27/22: MCH 29.6 pg (28.0-34.0) 02/27/22: MCHC 32.4 g/dL (30.0-36.0) 02/27/22: RDW 14.1 % (12.1-15.1) 02/27/22: Plt Count 231 10^3/cmm (130-400) 02/27/22: MPV 11.0 fL (7.4-10.4) H 02/27/22 20: Neut % (Auto) 63.0 % 02/27/22: Lymph % (Auto) 22.8 % 02/27/22: Mccracken % (Auto) 8.7 % 02/27/22: Eos % (Auto) 4.1 % 02/27/22 20: Baso % (Auto) 0.7 % 02/27/22: Neut # (Auto) 6.21 10^3/uL (1.8-7.7) 02/27/22: Lymph # (Auto) 2.3 10^3/uL (0.8-4.8) 02/27/22 20: M[place]racken # (Auto) 0.9 10^3/uL (0.2-0.9) 02/27/22 20: Eos # (Auto) 0.4 10^3/uL (0.0-0.8) 02/27/22 20:23 Baso # (Auto) 0.1 10^3/uL (0.0-0.1) 02/27/22 20: Nucleated RBC % (auto) 0 % 02/27/22 20: Nucleated RBCs # 0.0 /100WBC 02/27/22 20: PT 14.10 SECONDS (12.1-14.9) 02/27/22 20: INR 1.06 (0.8-1.2) 02/27/22 20:23 Sodium 138 mmol/L (136-145) 02/27/22 20:23 Potassium 4.1 mmol/L (3.5-5.1) 02/27/22 20: Chloride 101 mmol/L (98-107) 02/27/22 20: Carbon Dioxide 22 mmol/L (22-29) 02/27/22 20: Anion Gap 19.1 (5-19) H 02/27/22 20: BUN 21 mg/dL (8-23) 02/27/22 20: Creatinine 1.0 mg/dL (0.5-0.9) H 02/27/22 20:23 GFR Calculation Not Reportable 02/27/22 20: Glucose 311 mg/dL (65-115) H 02/27/22 20:23 Calculated Osmolality 301 mOsm/kg (285-295) H 02/27/22 20:23 Calcium 9.9 mg/dL (8.5-10.5) 02/27/22 20:23 Total Bilirubin 0.3 mg/dL (0.15-1.2) 02/27/22 20:23 AST 12 U/L (0-32) 02/27/22 20:23 ALT 13 U/L (0-33) 02/27/22 20:23 Alkaline Phosphatase 101 U/L (35-105) 02/27/22 20:23 Troponin T Baseline 14 ng/L (0-10) H 02/27/22 20:23 Troponin T 120 Minute 13.82 ng/L (0-10) H 02/27/22 21:58 Delta Troponin T -0.18 ABS# (0-10) L 02/27/22 21:58 NT-Pro-B Natriuret Pep 126 pg/mL (0-450) 02/27/22 20:23 Total Protein 7.4 g/dL (6.6-8.7) 02/27/22 20: Albumin 4.4 g/dL (3.5-5.2) 02/27/22 20: Globulin 3.0 g/dL (1.3-4.6) 02/27/22 20:23 Urine Color Yellow (Yellow) 02/27/22 20:59 Urine Appearance Sl hazy (CLEAR) A 02/27/22 20:59 Urine pH 6 (5-7) 02/27/22 20:59 Ur Specific [place] 1.015 (1.005-1.030) 02/27/22 20:59 Urine Protein Trace (Negative) 02/27/22 20: Urine Glucose (UA) 4+ (Normal) H 02/27/22 20:59 Urine Ketones Negative (Negative) 02/27/22 20:59 Urine Blood 3+ (Negative) H 02/27/22 20:59 Urine Nitrate Negative (Negative) 02/27/22 20:59 Urine Bilirubin Neg (Negative) 02/27/22 20:59 Prot Sulfosalicylic Acd Negative (Negative) 02/27/22 20:59 Urine Urobilinogen Norm mg/dL (Negative) 02/27/22 20:59 Ur Leukocyte Esterase Negative (Negative) 02/27/22 20:59 Urine RBC Too numerous to cnt /hpf (0-2) H 02/27/22 20:59 Urine WBC 55-80 /hpf (0-5) H 02/27/22 20:59 Ur Squamous Epith Cells 0-4 /hpf (0-5) H 02/27/22 20:59 Amorphous Sediment Not Reportable 02/27/22 20:59 Urine Bacteria 1+ /hpf (NONE) H 02/27/22 20:59 EKG Data EKG 1: I personally reviewed and interpreted this EKG as follows: EKG interpretation date: 02/27/22 EKG interpretation time: 20:48 Interpretation: nsr hr [address] or t wave abnormalities qrs 91 qtc 403 Other EKG comments: Chest X-Ray 02/27/22 20:38 IMPRESSION: 1. No acute cardiopulmonary process. 2. Incidental/nonacute findings are listed in the report. Abdomen/Pelvis CT 02/27/22 22:43 IMPRESSION: 1. Diffuse, mild wall thickening of the bladder. In the correct clinical setting, this may suggest cystitis. Recommend correlation with laboratory findings. Alternatively, this may be secondary to chronic outlet obstruction. 2. Scattered diverticula in the colon. No evidence for diverticulitis. 3. Incidental/nonacute findings are listed in the report. Discharge Plan Discharge Patient Disposition: Home Clinical Impression: Palpitations, Acute cystitis Condition: Stable Prescriptions: New cephalexin 500 mg capsule 500 mg PO TID 7 Days Qty: 21 0RF No Action metformin 500 mg tablet 500 mg PO DAILY rosuvastatin 10 mg tablet 10 mg PO DAILY melatonin 5 mg capsule PO PRN [id number] acid-lutein PO insulin aspart U-100 SUBCUT Rx Instructions: SLIDING SCALE acetaminophen 500 mg capsule 500 mg PO Q6H PRN pantoprazole 20 mg tablet,delayed release (DR/EC) 40 mg PO DAILY Tresiba FlexTouch U-100 100 unit/mL (3 mL) insulin pen 58 unit SUBCUT DAILY metoprolol tartrate 25 mg tablet 25 mg PO BID amlodipine 10 mg tablet 10 mg PO DAILY lisinopril 20 mg tablet 20 mg PO DAILY docusate sodium [Colace] 100 mg capsule 300 mg PO DAILY PRN ketoconazole 2 % cream 1 applic topical BID Qty: 60 3RF Rx Instructions: Apply to affected areas in skin folds x 3 weeks then prn for flares diphenhydramine HCl [Benadryl] 25 mg capsule 25 mg PO DAILY PRN methenamine hippurate 1 gram tablet 1 g PO BID Qty: 60 12RF Rx Instructions: Take 1000 mg of vitamin C with each dose of methenamine ciprofloxacin HCl 250 mg tablet 250 mg PO BID Qty: 60 1RF Discharge Orders: Discharge ED (Routine); Ordered 02/28/22 Ordered By: Blanca Atwood Referrals: Blaine Mukherjee MD [Primary Care Provider] - Discharge Diet: Advance as tolerated Discharge Activity: Resume usual activity Patient Instructions: Urinary Tract Infection in Women (ED) Coding Level of Care Code ED Change Management Administrator for Chg Fwd Exam Comprehensive
[2022-02-27 21:14] LABS: Troponin(5th) Baseline 14 ng/L (0-10)
[2022-02-27 21:22] LABS: Alanine Aminotransferase 13 U/L (0-33); Albumin Level 4.4 g/dL (3.5-5.2); Alkaline Phosphatase 101 U/L (35-105); Anion Gap 19.1 (5-19); Aspartate Amino Transferase 12 U/L (0-32); Blood Urea Nitrogen 21 mg/dL (8-23); Calcium 9.9 mg/dL (8.5-10.5); Carbon Dioxide 22 mmol/L (22-29); Chloride 101 mmol/L (98-107); Glucose 311 mg/dL (65-115); NT Pro B Type Natriuretic Pept 126 pg/mL (0-450); Osmolality Calculated 301 mOsm/kg (285-295); Potassium 4.1 mmol/L (3.5-5.1); Sodium 138 mmol/L (136-145); Total Bilirubin 0.3 mg/dL (0.15-1.2); Total Protein 7.4 g/dL (6.6-8.7)
[2022-02-27 22:02] LABS: Bilirubin Urine Neg (Negative); Blood Urine 3+ (Negative); Glucose Urine UA 4+ (Normal); Ketones Urine Negative (Negative); Nitrate Urine Negative (Negative); Protein Urine Trace (Negative); Specific Gravity, Urine 1.015 (1.005-1.030); Sulfosalicylic Acid Urine Negative (Negative); Urine Appearance SL Hazy (CLEAR); Urine Color Yellow (Yellow); pH Urine 6 (5-7)
[2022-02-27 22:03] LABS: Urobilinogen Urine Norm (Negative)
[2022-02-27 22:36] LABS: Leukocyte Esterase Urine Negative (Negative)
[2022-02-27 22:37] LABS: Add Urine Microscopic? YES
[2022-02-27 22:38] LABS: RBC Urine TOO NUMEROUS TO CNT /hpf (0-2)
--- NOTE | 2022-02-27 22:38 | ECG_ITS ---
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 Measurements Intervals [place] Rate: 78 P: 44 IN: 202 QRS: -26 QRSD: 89 T: 51 QT: 386 QTc: 441 Interpretive Statements SINUS RHYTHM MODERATE VOLTAGE CRITERIA FOR LVH, CONSIDER NORMAL VARIANT [MEETS CRITERIA IN ONE OF: R(aVL), S(V1), R(V5), R(V5/V6)+S(V1)] ANTERIOR MYOCARDIAL INFARCTION , OF INDETERMINATE AGE [40+ ms Q WAVE AND/OR ST/T ABNORMALITY IN V3/V4] INFERIOR MYOCARDIAL INFARCTION , PROBABLY OLD [40+ ms Q WAVE AND/OR ST/T ABNORMALITY IN II/aVF] Compared to ECG 02/27/2022 20:48:58 ST (T wave) deviation no longer present Myocardial infarct finding still present Electronically Signed On 02-28-2022 12:14:23 CDT by Marla Wen M.D. [id number]
[2022-02-27 22:39] LABS: Add Urine Culture? Yes; Bacteria Urine 1+ /hpf; Squamous Epithelial Cell Urine 0-4 /hpf (0-5); WBC Urine 55-80 /hpf (0-5)
[2022-02-27 22:39] LABS: Troponin 5 2HR 13.82 ng/L (0-10)
--- NOTE | 2022-02-27 22:43 | CTR_ITS ---
PROCEDURE INFORMATION: Exam: CT Abdomen And Pelvis Without Contrast Exam date and time: 02/27/2022 11:10 PM Age: 86 years old Clinical indication: Abdominal pain; Generalized; Patient HX: Diffuse abd pain TECHNIQUE: Imaging protocol: Computed tomography of the abdomen and pelvis without contrast. Sagittal and coronal reformatted images were created and reviewed. Radiation optimization: All CT scans at this facility use at least one of these dose optimization techniques: automated exposure control; mA and/or kV adjustment per patient size (includes targeted exams where dose is matched to clinical indication); or iterative reconstruction. COMPARISON: CT abdomen pelvis w con* [id number] 03/04/2020 2:06 PM RADIATION DOSE METRICS: Total DLP (mGy-cm): 851.83 FINDINGS: Limitations: Evaluation of solid organs and vasculature is limited without intravenous contrast. Lungs: Calcified granuloma in the right lower lobe. Stable interstitial fibrotic changes with areas of honeycombing in the periphery of the lower lungs. Mild centrilobular emphysematous changes in the visualized lungs. Visualized lungs are clear. Pleural spaces: No pleural effusion. Heart: Stable mild enlargement of the visualized portions of the heart. Moderate atherosclerotic calcification in the visualized coronary arteries. Liver: The liver is unremarkable. Gallbladder and bile ducts: The gallbladder is unremarkable. No biliary ductal dilatation. Pancreas: The pancreas is unremarkable. No pancreatic ductal dilatation. Spleen: The spleen is unremarkable. Adrenal glands: The right and left adrenal glands are unremarkable. Kidneys and ureters: The right and left kidneys are unremarkable. The right and left ureters are unremarkable. Stomach and bowel: Scattered diverticula in the colon. No evidence for diverticulitis. No acute abnormality in the small bowel. Stable moderate hiatal hernia. Appendix: The appendix is visualized and is unremarkable. No findings to suggest acute appendicitis. Intraperitoneal space: No free intraperitoneal air. No ascites. No loculated fluid collections to suggest an abscess. Vasculature: Stable moderate to severe atherosclerotic calcifications in the visualized arteries. No evidence for aortic aneurysm. Lymph nodes: No lymphadenopathy. Urinary bladder: Diffuse, mild wall thickening of the bladder. Reproductive: The uterus is unremarkable. Calcification in the right ovary, possibly due to sequela from a prior involuting cyst. The left ovary is not definitely visualized, not an expected in a postmenopausal female. This is likely due to ovarian atrophy. Bones/joints: Degenerative changes in the spine and hips. Bones are diffusely osteopenic. Multilevel foraminal stenosis of varying severity in the visualized spine. Soft tissues: The extra-abdominal soft tissues are unremarkable. CT/CT abdomen pelvis wo con [id number] IMPRESSION: 1. Diffuse, mild wall thickening of the bladder. In the correct clinical setting, this may suggest cystitis. Recommend correlation with laboratory findings. Alternatively, this may be secondary to chronic outlet obstruction. 2. Scattered diverticula in the colon. No evidence for diverticulitis. 3. Incidental/nonacute findings are listed in the report.
[2022-02-27 22:50] LABS: Troponin 5 2HR Delta -0.18 ABS# (0-10)
[2022-02-28] MEDS: cephALEXin 500 mg Capsule PO (00:30)
[2022-02-28 00:33] VITALS: BP 110/69; PULSE 94; RESP 18; O2SAT 97
== END 2022-02-28 00:35 | disposition home or self-care (01) ==
PROVIDERS: Emergency Provider Emergency Medicine; PCP Family Medicine
DX: R00.2 Palpitations (principal); N30.00 Acute cystitis without hematuria; Z79.84 Long term (current) use of oral hypoglycemic drugs; Z79.4 Long term (current) use of insulin; Z87.891 Personal history of nicotine dependence; J44.9 Chronic obstructive pulmonary disease, unspecified; E78.5 Hyperlipidemia, unspecified; E11.9 Type 2 diabetes mellitus without complications
CPT/HCPCS: 71045; 74176; 80053; 81001; 83880; 84484; 85025; 85610; 87086; 93005; 96360; 99285; J7030

== ENCOUNTER 2022-03-14 10:49 | Outpatient (CLI) | payer MEDICARE, MEDICAID, SELFPAY ==
--- NOTE | 2022-03-14 11:15 | USCV_ITS ---
Norma Porter Age: 86 Gender: F : 1935 Exam Date: 03/14/2022 10:55 Ordering Phys: Marla Wen MD ([email or web address]) Technologist: CT Exam Location: [facility] Indication: stenosis Risk Factors: Previous Vascular Surgery: Right Brachial BP: / Left Brachial BP: / Right Left Velocity (cm/s) Spectral Plaque Velocity (cm/s) Spectral Plaque Syst/Diast Broadening Syst/Diast Broadening 55.10/ 9.90 Prox CCA 62.80 / 11.00 54.40/ 13.20 Mid CCA 69.00 / 11.80 62.50/ 11.80 Distal CCA 52.90 / 10.40 58.10/ 10.30 Prox ICA 79.70 / 22.30 71.20/ 12.40 Mid ICA 67.70 / 14.70 87.10/ 24.30 Distal ICA 54.70 / 14.50 123.00 ECA 78.20 1.39 ICA/CCA 1.15 Antegrade Vertebral Retrograde 28.20/ 11.80 cm/s 42.00/ 0.90 cm/s Bi Subclavian Bi 66.70 63.10 FINDINGS left retro vert, diffuse calcified plq bilaterally CONCLUSIONS Right ICA stenosis <50%. Moderate atheromatous plaque right carotid bulb/ICA. Left ICA stenosis <50%. Moderate atheromatous plaque left carotid bulb/ICA. Normal antegrade Doppler flow noted in the right vertebral artery. Retrograde Doppler flow noted in the left vertebral artery with monophasic subclavian consistent with subclavian steal No changes since 2020 Augustine Sood MD (Electronically Signed) Final Date: 14 March 2022 16:03 S
== END 2022-03-14 10:50 | disposition home or self-care (01) ==
LOC: RAD 10:50
PROVIDERS: PCP Family Medicine; Visit Provider Internal Medicine Cardiovascular Disease
DX: I65.23 Occlusion and stenosis of bilateral carotid arteries (principal)
CPT/HCPCS: 93880

== ENCOUNTER → 2022-05-22 15:20 | Outpatient (BNVA) | payer MEDICARE, MEDICAID, SELFPAY | PROVIDERS: PCP Family Medicine; Visit Provider Internal Medicine Cardiovascular Disease | DX: I10 Essential (primary) hypertension (principal); I77.1 Stricture of artery; I65.23 Occlusion and stenosis of bilateral carotid arteries; E78.2 Mixed hyperlipidemia; E11.42 Type 2 diabetes mellitus with diabetic polyneuropathy; Z79.84 Long term (current) use of oral hypoglycemic drugs; I73.9 Peripheral vascular disease, unspecified; J44.9 Chronic obstructive pulmonary disease, unspecified; Z87.891 Personal history of nicotine dependence | CPT/HCPCS: 99214; Q3014 ==

== ENCOUNTER → 2022-08-09 13:52 | Outpatient (BNVA) | payer MEDICARE, MEDICAID, SELFPAY | PROVIDERS: PCP Family Medicine; Visit Provider Urology | DX: N39.0 Urinary tract infection, site not specified (principal); R33.9 Retention of urine, unspecified; N39.46 Mixed incontinence | CPT/HCPCS: 99213 ==

== ENCOUNTER → 2022-10-02 14:56 | Outpatient (BNVA) | payer MEDICARE, MEDICAID, SELFPAY | PROVIDERS: PCP Family Medicine; Visit Provider Urology | DX: R33.9 Retention of urine, unspecified (principal); N39.46 Mixed incontinence; N39.8 Other specified disorders of urinary system; Z79.2 Long term (current) use of antibiotics; N39.0 Urinary tract infection, site not specified | CPT/HCPCS: 51798; 81003; 99214 ==

== ENCOUNTER → 2023-07-08 11:02 | Outpatient (BNVA) | payer MEDICARE, MEDICAID, SELFPAY | PROVIDERS: PCP Family Medicine; Visit Provider Podiatrist Foot & Ankle Surgery | DX: E11.8 Type 2 diabetes mellitus with unspecified complications (principal); I73.9 Peripheral vascular disease, unspecified; L60.3 Nail dystrophy; E11.42 Type 2 diabetes mellitus with diabetic polyneuropathy; Z79.84 Long term (current) use of oral hypoglycemic drugs; Z79.4 Long term (current) use of insulin | CPT/HCPCS: 11721 ==

== ENCOUNTER → 2023-09-20 08:03 | Outpatient (BNVA) | payer MEDICARE, MEDICAID, SELFPAY | PROVIDERS: PCP Family Medicine; Visit Provider Nurse Practitioner Family | DX: L82.0 Inflamed seborrheic keratosis (principal); L30.4 Erythema intertrigo; L82.1 Other seborrheic keratosis; D22.5 Melanocytic nevi of trunk; L91.8 Other hypertrophic disorders of the skin | CPT/HCPCS: 17110; 99214 ==

== ENCOUNTER → 2024-04-30 07:56 | Outpatient (BNVA) | payer MEDICARE, MEDICAID, SELFPAY | PROVIDERS: PCP Family Medicine; Referring Provider Family Medicine; Visit Provider Specialist | DX: G40.209 Localization-related (focal) (partial) symptomatic epilepsy and epileptic syndromes with complex partial seizures, not intractable, without status epilepticus (principal) | CPT/HCPCS: 95816 ==

== ENCOUNTER 2024-07-02 12:47 | Outpatient (CLI) | payer MEDICARE, MEDICAID, SELFPAY ==
--- NOTE | 2024-07-02 12:55 | MR_ITS ---
WS: [id number] MRI HEAD WITH CONTRAST TECHNIQUE: Sagittal T1, T2 axial, T2 axial FLAIR, axial susceptibility weighted imaging, axial diffusion weighted images, and coronal T2 images were obtained. Pre and post-T1 axial and post T1 coronal images. ADC and FSPGR images. CLINICAL INFORMATION: RECURRENT COMPLEX PARTIAL EPILEPSY COMPARISON: 2019 FINDINGS: Some images degraded by motion. Tiny punctate focus of restricted diffusion in the RIGHT superior temporal lobe at the frontal temporal junction. No other foci of restricted diffusion. Moderate small vessel changes. Moderate parenchymal volume loss. This is progressed since 2019. Chronic tiny lacunar infarcts in the cerebellum. Small vessel changes in the efren. Chronic lacunar infarcts in the LEFT basal ganglia. Paranasal sinuses are well aerated. Opacification LEFT mastoid air cells. No hemosiderin on the susceptibly weighted images. Normal optic chiasm and pituitary infundibulum. Mild symmetric atrophy temporal lobes and hippocampal formations. Normal dural venous sinuses. No abnormal gadolinium enhancement. MR/MR head wo/w con [id number] IMPRESSION: 1. Tiny punctate focus of restricted diffusion in the RIGHT superior temporal lobe the frontal temporal junction compatible with a tiny focus of acute ischem ia. 2. Moderate small vessel changes. Moderate parenchymal volume loss progressed compared to previous. 3. 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 4. LEFT mastoid effusion. 5. Mild symmetric atrophy temporal lobes and hippocampal formations.
== END 2024-07-02 12:48 | disposition home or self-care (01) ==
LOC: RAD 12:48
PROVIDERS: PCP Family Medicine; Visit Provider Family Medicine
DX: G40.209 Localization-related (focal) (partial) symptomatic epilepsy and epileptic syndromes with complex partial seizures, not intractable, without status epilepticus (principal); R90.89 Other abnormal findings on diagnostic imaging of central nervous system; H74.8X2 Other specified disorders of left middle ear and mastoid; G31.89 Other specified degenerative diseases of nervous system
CPT/HCPCS: 70553

== ENCOUNTER → 2024-09-22 09:52 | Outpatient (BNVA) | payer MEDICARE, MEDICAID, SELFPAY | PROVIDERS: PCP Family Medicine; Visit Provider Nurse Practitioner Family | DX: L30.4 Erythema intertrigo (principal); L91.8 Other hypertrophic disorders of the skin; L82.1 Other seborrheic keratosis; L57.8 Other skin changes due to chronic exposure to nonionizing radiation; X32.XXXA Exposure to sunlight, initial encounter | CPT/HCPCS: 99214 ==